=== PATIENT | male | born 1985 | race Caucasian/White ===

== ENCOUNTER 2017-02-24 19:25 | Emergency (ER) | payer OTHER ==
[~2017-02-24] VITALS: Ht 180.3 cm; Wt 158.8 kg
[~2017-02-24 19:25] MED LIST: DIAZ5TAB PO; GABA-586 PO; HYDR-971 PO; METH4TAB2 PO; NAPR500T8 PO
[2017-02-24 19:48] VITALS: BP 157/95
--- NOTE | 2017-02-24 19:58 | PHYS DOC ---
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 Patient states he felt disoriented. He is not able to describe what he was disoriented on. Patient states he got up and took a shower and felt slightly dizzy. He states he got into his car and came to the ED to be evaluated. Patient denies any chest pain or shortness of breath. He is alert and oriented 4. He is processing information very well in the ED. Review of Systems Review of Systems Constitutional: Denies fever or chills [] Eyes: Denies change in visual acuity, redness, or eye pain [] HENT: Denies nasal congestion or sore throat [] Respiratory: Denies cough or shortness of breath [] Cardiovascular: No additional information not addressed in HPI [] GI: Denies abdominal pain, nausea, vomiting, bloody stools or diarrhea [] : Denies dysuria or hematuria [] Musculoskeletal: Denies back pain or joint pain [] Integument: Denies rash or skin lesions [] Neurologic: confusion Endocrine: Denies polyuria or polydipsia [] Current Medications Current Medications Current Medications Medications (Trade) Dose Ordered Sig/Victor M Start Time Stop Time Status Last Admin Dose Admin Sodium Chloride 1,000 ml @ 1,000 mls/hr 1X ONCE 02/24/17 20:00 02/24/17 20:59 DC 02/24/17 20:16 1,000 MLS/HR Allergies Allergies Allergies Coded Allergies Type Severity Reaction Last Updated Verified No Known Drug Allergies 12/24/15 No Physical Exam Physical Exam Constitutional: Overweight, Well developed, well nourished, no acute distress, non-toxic appearance. [] HENT: Normocephalic, atraumatic, bilateral external ears normal, oropharynx moist, no oral exudates, nose normal. [] Eyes: PERRLA, EOMI, conjunctiva normal, no discharge. [] Neck: Normal range of motion, no tenderness, supple, no stridor. [] Cardiovascular:Heart rate regular rhythm, no murmur [] Lungs & Thorax: Bilateral breath sounds clear to auscultation [] Abdomen: Bowel sounds normal, soft, no tenderness, no masses, no pulsatile masses. [] Skin: Warm, dry, no erythema, no rash. [] Back: No tenderness, no CVA tenderness. [] Extremities: No tenderness, no cyanosis, no clubbing, ROM intact, no edema. [] Neurologic: Alert and oriented X 3, normal motor function, normal sensory function, no focal deficits noted. Cranial nerves II through XII intact Psychologic: Affect normal, judgement normal, mood normal. [] Current Patient Data Vital Signs Vital Signs Date Time Temp Pulse Resp B/P (MAP) Pulse Ox O2 Delivery O2 Flow Rate FiO2 02/24/17 19:48 98.0 80 16 157/95 (115) 96 Room Air 98.0 Lab Values Laboratory Tests Test 02/24/17 20:00 White Blood Count 13.5 x10^3/uL (4.0-11.0) H Red Blood Count 5.38 x10^6/uL (4.30-5.70) Hemoglobin 15.9 g/dL (13.0-17.5) Hematocrit 46.5 % (39.0-53.0) Mean Corpuscular Volume 86 fL (79-100) Mean Corpuscular Hemoglobin 30 pg (25-35) Mean Corpuscular Hemoglobin Concent 34 g/dL (31-37) Red Cell Distribution Width 13.7 % (11.5-14.5) Platelet Count 282 x10^3/uL (140-400) Neutrophils (%) (Auto) 62 % (31-73) Lymphocytes (%) (Auto) 31 % (24-48) Monocytes (%) (Auto) 6 % (0-9) Eosinophils (%) (Auto) 2 % (0-3) Basophils (%) (Auto) 1 % (0-3) Neutrophils # (Auto) 8.3 x10^3uL (1.8-7.7) H Lymphocytes # (Auto) 4.1 x10^3/uL (1.0-4.8) Monocytes # (Auto) 0.7 x10^3/uL (0.0-1.1) Eosinophils # (Auto) 0.2 x10^3/uL (0.0-0.7) Basophils # (Auto) 0.1 x10^3/uL (0.0-0.2) Prothrombin Time 13.3 SEC (11.7-14.0) Prothrombin Time INR 1.1 (0.8-1.1) PTT 26 SEC (24-38) Sodium Level 139 mmol/L (136-145) Potassium Level 3.6 mmol/L (3.5-5.1) Chloride Level 102 mmol/L (98-107) Carbon Dioxide Level 26 mmol/L (21-32) Anion Gap 11 (6-14) Blood Urea Nitrogen 13 mg/dL (8-26) Creatinine 0.9 mg/dL (0.7-1.3) Estimated GFR (Cockcroft-Gault) 99.8 Glucose Level 97 mg/dL (70-99) Calcium Level 8.9 mg/dL (8.5-10.1) Magnesium Level 2.1 mg/dL (1.8-2.4) Creatine Kinase 95 U/L (39-308) Creatine Kinase MB (Mass) < 0.5 ng/mL (0.0-3.6) Creatine Kinase MB Relative Index % (0-4) Troponin I Quantitative < 0.017 ng/mL (0.000-0.055) Thyroid Stimulating Hormone (TSH) 1.960 uIU/mL (0.358-3.74) Ethyl Alcohol Level < 10 mg/dL (0-10) Laboratory Tests 02/24/17 20:00 Laboratory Tests 02/24/17 20:00 EKG EKG [] Radiology/Procedures Radiology/Procedures [] Course & Med Decision Making Course & Med Decision Making Pertinent Labs and Imaging studies reviewed. (See chart for details) This is a 31-year-old male patient presented to the ED today complaining of confusion when he woke up to get ready for work this evening. Patient works for [employer]. Patient is alert and oriented 4 in the ED. He is in no distress. Patient's workup in the ED is negative for any acute findings. He is in no distress. He was given a liter of fluids. He states he feels back to his baseline. I recommended he push his fluids and follows up with his own PCP in 1 week. He was provided return precautions and discharged in stable condition. Dragon Disclaimer Dragon Disclaimer This electronic medical record was generated, in whole or in part, using a voice recognition dictation system. Departure Departure Impression: Primary Impression: Disorientation, unspecified Additional Impression: Dehydration Disposition: 01 HOME, SELF-CARE Condition: STABLE Referrals: MARY BRODERICK MD (PCP) follow up with your doctor in the next seven days Patient Instructions: Dehydration, Adult, [id number] Additional Instructions: You were seen with concern for disorientation. Could've been dehydrated. Consider pushing fluids. Consider following up with your primary care doctor in the next 7 days. Come back to the ED if symptoms worsen. Problem Qualifiers NICKOLAS PARMAR APRN Feb 24, 2017 19:58
[2017-02-24] MEDS ORDERED: IV NORMAL SALINE 1000ML BAG 1,000 ML IV ONE (20:00)
[2017-02-24 20:14] LABS: BASO # 0.1 x10^3/uL (0.0-0.2); BASO % 1 % (0-3); EOS % 2 % (0-3); HEMATOCRIT 46.5 % (39.0-53.0); HEMOGLOBIN 15.9 g/dL (13.0-17.5); LYMPH # 4.1 x10^3/uL (1.0-4.8); LYMPH % 31 % (24-48); MEAN CORPUSCULAR HEMOGLOBIN 30 pg (25-35); MEAN CORPUSCULAR HGB CONC 34 g/dL (31-37); MEAN CORPUSCULAR VOLUME 86 fL (79-100); MONO % 6 % (0-9); NEUT % 62 % (31-73); PLATELET COUNT 282 x10^3/uL (140-400); RED BLOOD COUNT 5.38 x10^6/uL (4.30-5.70); RED CELL DISTRIBUTION WIDTH 13.7 % (11.5-14.5); WHITE BLOOD COUNT 13.5 x10^3/uL (4.0-11.0)
[2017-02-24 20:24] LABS: INR 1.1 (0.8-1.1); PROTHROMBIN TIME PATIENT 13.3 SEC (11.7-14.0)
[2017-02-24 20:28] LABS: CALCIUM 8.9 mg/dL (8.5-10.1); CREATININE 0.9 mg/dL (0.7-1.3); GFR 99.8; POTASSIUM 3.6 mmol/L (3.5-5.1)
[2017-02-24 20:29] LABS: MAGNESIUM 2.1 mg/dL (1.8-2.4)
[2017-02-24 20:44] LABS: CKMB MASS < 0.5 ng/mL (0.0-3.6); CREATINE KINASE 95 U/L (39-308)
[2017-02-24 21:32] LABS: BILIRUBIN,URINE NEGATIVE (NEG); GLUCOSE,URINE NEGATIVE (NEG); NITRITE,URINE NEGATIVE (NEG); PH,URINE 5.5; PROTEIN,URINE NEGATIVE (NEG-TRACE); UROBILINOGEN,URINE 0.2 mg/dL (0.2 mg/dL)
[2017-02-24 21:39] LABS: BACTERIA,URINE FEW /HPF (0-FEW); RBC,URINE 0 /HPF (0-2); SQUAMOUS EPITHELIAL CELL,UR OCC /LPF
[2017-02-24 21:40] LABS: BARBITURATES NEG (NEG); BENZODIAZEPINES NEG (NEG); CANNABINOIDS NEG (NEG); COCAINE NEG (NEG); METHADONE NEG (NEG); OPIATES NEG (NEG); PHENCYCLIDINE NEG (NEG)
--- NOTE | 2017-02-25 07:27 | EKG ---
[facility] [address] [place] [address] Test Date: 2017-02-24 Test Time: 19:51:00 Pat Name: JUN SAEED Department: Room: Gender: Overnight Associate: : 1985 Requested By: NICKOLAS PARMAR Order Number: [id number] Reading MD: Doris Ghosh Measurements Intervals Tyler Rate: 79 P: 19 WY: 168 QRS: 7 QRSD: 82 T: -3 QT: 358 QTc: 411 Interpretive Statements SINUS RHYTHM QRS(T) CONTOUR ABNORMALITY CONSIDER ANTEROSEPTAL MYOCARDIAL DAMAGE ABNORMAL ECG Electronically Signed On 02-27-2017 10:10:06 CDT by Doris Ghosh
--- NOTE | 2017-02-25 08:24 | RAD ---
Portable chest, 02/24/2017: History: Confusion, near syncope The heart size and pulmonary vascularity are normal. The lungs are clear. There is no evidence of pleural fluid. IMPRESSION: No acute cardiopulmonary abnormality is detected.
== END 2017-02-24 22:11 | disposition home or self-care (01) ==
LOC: ER 19:25
DX: R41.0 Disorientation, unspecified (principal); E86.0 Dehydration; R42 Dizziness and giddiness; G47.30 Sleep apnea, unspecified; E66.3 Overweight; Z68.42 Body mass index [BMI] 45.0-49.9, adult
CPT/HCPCS: 36415; 71010; 80048; 80307; 81001; 82553; 83735; 84443; 84484; 85025; 85610; 85730; 93005; 96360; 99285; G0480; J7030; G0479

== ENCOUNTER 2017-02-26 19:30 | Emergency (ER) | payer OTHER ==
[~2017-02-26] VITALS: Ht 200.7 cm; Wt 154.2 kg
[2017-02-26] MEDS ORDERED: diphenhydrAMINE 50 MG/ML VIAL IVP ONE (20:30)
[2017-02-26] MEDS ORDERED: IV NORMAL SALINE 1000ML BAG 1,000 ML IV ONE (20:30)
[2017-02-26] MEDS ORDERED: KETOROLAC TROMETHAMINE 30 MG/ML INJ. IV ONE (20:30)
[2017-02-26] MEDS ORDERED: PROCHLORPERAZINE 10 MG/2 ML VIAL. IV ONE (20:30)
--- NOTE | 2017-02-26 21:52 | PHYS DOC ---
Past Medical History Past Medical History: Other Additional Past Medical Histor: sleep apnea, seasonal allergies Past Surgical History: Tonsillectomy, Other Additional Past Surgical Histo: Uvulaectomy; bilat carpal tunnel Alcohol Use: None Drug Use: None Adult General Chief Complaint Chief Complaint: HEADACHE HPI HPI Patient is a 31 year old male who presents with headache. The patient has 2 day history of right sided throbbing/aching food associated with photophobia & nausea. He reports pain radiates to right neck & ear. Denies fevers/chills, vision changes, drainage from ear, sore throat, nasal congestion, vomiting. Denies extremity numbness/weakness. He has history of migraine headache & states this is typical of his usual headache, not sudden in onset, not the worst headache of his life. Took aleve at home prior to arrival. Seen here 2 days ago for lightheadedness which has improved. Has a PCP at [facility]. Review of Systems Review of Systems Constitutional: Denies fever or chills Eyes: Denies change in visual acuity HENT: Denies nasal congestion or sore throat Respiratory: Denies cough or shortness of breath Cardiovascular: Denies chest pain or edema GI: Reports nausea. Denies abdominal pain, vomiting, or diarrhea : Denies dysuria or hematuria Musculoskeletal: Denies back pain or joint pain Integument: Denies rash or skin lesions Neurologic: Reports headache, denies focal weakness or sensory changes Current Medications Current Medications Current Medications Medications (Trade) Dose Ordered Sig/Victor M Start Time Stop Time Status Last Admin Dose Admin Diphenhydramine HCl (Benadryl) 25 mg 1X ONCE 02/26/17 20:30 02/26/17 20:46 DC 02/26/17 20:45 25 MG Ketorolac Tromethamine (Toradol) 30 mg 1X ONCE 02/26/17 20:30 02/26/17 20:46 DC 02/26/17 20:44 30 MG Prochlorperazine Edisylate (Compazine) 10 mg 1X ONCE 02/26/17 20:30 02/26/17 20:46 DC 02/26/17 20:44 10 MG Sodium Chloride 1,000 ml @ 1,000 mls/hr 1X ONCE 02/26/17 20:30 02/26/17 21:29 DC 02/26/17 20:38 1,000 MLS/HR Allergies Allergies Allergies Coded Allergies Type Severity Reaction Last Updated Verified No Known Drug Allergies 12/24/15 No Physical Exam Physical Exam Constitutional: Obese, no acute distress, non-toxic appearance. HENT: Normocephalic, atraumatic, bilateral external ears normal, TMs clear bilaterally, oropharynx moist, no tonsillar enlargement or exudate, nose normal. Eyes: PERRLA, EOMI, conjunctiva normal, no discharge. Neck: supple, no stridor. No meningismus. No focal tenderness with palpation of the neck, no cervical lymphadenopathy. Cardiovascular: RRR, no murmurs, no edema. Lungs & Thorax: LCTAB, no wheezing, no respiratory distress. Abdomen: soft, nontender, nondistended. Skin: Warm, dry, no erythema, no rash. Back: No tenderness. Extremities: No tenderness, no edema. Neurologic: Alert and oriented X 3, cranial nerves II through XII grossly intact , symmetric strength and sensation to upper and lower extremities, no focal deficits noted. Psychologic: Affect normal, judgement normal, mood normal. Current Patient Data Vital Signs Vital Signs Date Time Temp Pulse Resp B/P (MAP) Pulse Ox O2 Delivery O2 Flow Rate FiO2 02/26/17 22:17 99 16 132/78 (96) 98 Room Air 02/26/17 21:35 97.7 97.7 EKG EKG [] Radiology/Procedures Radiology/Procedures [] Course & Med Decision Making Course & Med Decision Making Pertinent Labs and Imaging studies reviewed. (See chart for details) The patient presents with headache typical of his usual migraine. Gave IV fluids , Compazine, Benadryl, Toradol. He felt better after treatment here and requested discharge home. Recommend rest, by mouth hydration, Tylenol or ibuprofen for headache. Follow-up with primary care physician for ongoing management of headaches. Return to the emergency department for high fever, severe or sudden onset headache, focal neurologic deficit, altered mental status , any otherwise worsening condition. Discharged home in stable and improved condition. [] Dragon Disclaimer Dragon Disclaimer This electronic medical record was generated, in whole or in part, using a voice recognition dictation system. Departure Departure Impression: Primary Impression: Migraine Disposition: 01 HOME, SELF-CARE Condition: IMPROVED Referrals: MARY BRODERICK MD (PCP) Patient Instructions: Migraine Headache, [id number] Additional Instructions: You were seen in the emergency department today for headache. Your symptoms improved with treatment here. please rest, drink fluids, take tylenol or ibuprofen for headache. Follow up with primary care physician in 2-3 days. Come back for high fever, sudden onset severe headache or worst headache of your life, numbness or weakness in arms or legs, any otherwise worsening condition. PAPITO ADEN MD Feb 26, 2017 21:52
[2017-02-26 22:17] VITALS: BP 132/78
== END 2017-02-26 22:19 | disposition home or self-care (01) ==
LOC: ER 19:30
DX: G43.909 Migraine, unspecified, not intractable, without status migrainosus (principal); G47.30 Sleep apnea, unspecified
CPT/HCPCS: 96361; 96374; 96375; 99285; J0780; J1200; J1885; J7030